=== PATIENT | female | born 1965 | race Caucasian/White ===

== ENCOUNTER 2024-10-21 18:20 | Emergency (ER) | payer SELFPAY ==
[2024-10-21] VITALS (11 sets, daily range): BP systolic 122–146; BP diastolic 82–92; PULSE 62–75; RESP 15–18; TEMP 36.7; O2SAT 96–99
[2024-10-21] MEDS: predniSONE 20 MG TAB 60 MG PO (18:59)
[2024-10-21] MEDS: Famotidine 20 MG TAB PO (18:59)
--- NOTE | 2024-10-21 19:10 | W.ED.GENAD ---
Discharge Plan Disposition Patient Disposition: Home Condition: Good Discharge Details Clinical Impression: Allergic reaction to bee sting Primary Care Provider: Rosemary,Local ED Provider: Nicole Rich Home Meds and New Rx's Prescriptions: New prednisone 20 mg tablet 40 mg PO DAILY 3 Days Qty: 6 0RF prednisone 20 mg tablet 40 mg PO DAILY 3 Days Qty: 6 0RF Discharge Instructions Instructions: Insect Bites and Stings ED Additional Instructions: Please call your primary care provider first thing Wednesday morning to schedule follow-up appointment to discuss today's reaction to bee stings. You are being prescribed a limited course of prednisone to help take down the swelling/inflammatory response. I recommend that you also take cetirizine 10 mg daily to help with itching. Cool compresses such as ice packs may also be helpful to help take down the swelling/itching. Avoid bathing/washing hands in hot water, as that can increase itchiness. I encourage you to avoid scratching, as that can lead to infection. Return to emergency care if you develop new facial/oral swelling, difficulty breathing/swallowing, new vomiting, worsening of rash despite treatment, episodes of passing out, or signs of infection to your bee stings such as increasing redness/swelling/pain/pus drainage, or if you are very worried and need to be rechecked immediately Discharge Data Discharge Date/Time-TO BE ENTERED AT DEPARTURE: 10/21/24 21:11 HPI General Date/Time Provider Initiated Documentation: 10/21/24 18:26. HPI Narrative: Anabel is a 59-year-old female who presents to the emergency department today for evaluation of allergic reaction after multiple bee stings. Reports she stepped on a bee nest while she was walking around 1700 hrs., sustained bee stings to her bilateral arms. She soon after developed swelling around right eye/right side of face, as well as ears. A red, swollen rash in her armpits, bra line, groin, and back also developed. This was accompanied by intense itching/burning sensation and ear pressure. She took 2 Benadryl tablets with good improvement of symptoms. Denies associated difficulty breathing, difficulty swallowing, nausea/vomiting, chest pain, shortness of breath, facial swelling/tongue swelling. No previous episodes of similar reactions. Denies significant past medical history, history of diabetes or bipolar/manias. She is visiting from [place]. Related Data Home Medications ?Medication ?Instructions ?Recorded ?Confirmed prednisone 20 mg tablet 40 mg (2 x 20 mg) PO DAILY 3 days 10/21/24 #6 tabs prednisone 20 mg tablet 40 mg (2 x 20 mg) PO DAILY 3 days 10/21/24 #6 tabs Previous Rx's ?Medication ?Instructions ?Recorded prednisone 20 mg tablet 40 mg (2 x 20 mg) PO DAILY 3 days 10/21/24 #6 tabs prednisone 20 mg tablet 40 mg (2 x 20 mg) PO DAILY 3 days 10/21/24 #6 tabs Allergies Allergy/AdvReac Type Severity Reaction Status Date / Time No Known Allergies Allergy Unverified 10/21/24 18:30 General Stated Complaint: InsectBite ADRIEL: 3 Exam Narrative Exam Narrative: General Appearance: Normal. Vital signs: Within normal limits. HEENT: No oral swelling lip swelling/swelling under tongue. Moist mucous membranes. Clear voice. Able to handle secretions without difficulty. Mild swelling to right lower eyelid. Respiratory: Easy work of breathing, able to speak in full sentences. Skin: Hives noted to bilateral groin folds, bilateral axilla, scattered across abdomen. Psychiatric: Normal. Course Vital Signs Vital signs: Vital Signs Temperature 36.7 C 10/21/24 18:25 Pulse 75 10/21/24 18:25 Respiratory Rate 16 10/21/24 18:25 Blood Pressure 122/82 10/21/24 18:25 Pulse Oximetry 96 10/21/24 18:25 Temperature 36.7 C 10/21/24 18:25 Pulse 75 10/21/24 18:25 Respiratory Rate 16 10/21/24 18:25 Blood Pressure 122/82 10/21/24 18:25 Blood Pressure Position Sitting 10/21/24 18:25 Pulse Oximetry 96 10/21/24 18:25 Oxygen Delivery Method Room Air 10/21/24 18:25 Oxygen Flow Rate 0 10/21/24 18:25 Pain Level 0 10/21/24 18:25 Medical Decision Making Initial Assessment: Systemic reaction to bee stings affecting integumentary system. Normal vital signs, no cardiovascular, respiratory, or GI symptoms. Patient overall very well-appearing. Symptoms significantly improved after Benadryl. History and presentation consistent with generalized urticarial reaction to bee stings. Presentation not consistent with acute anaphylaxis ED Course: - Ice packs applied. - P.o. famotidine and steroids administered. - Observed for recurrence or worsening x 2 hours Final Assessment: Patient experienced full improvement of hives with ice packs and p.o. medications. She was observed for 2 hours, no recurrence of symptoms. She is overall very well-appearing. Clinical Impression: - Urticarial reaction to bee stings Disposition: - Discharge home. Will send home with 3 days of prednisone. Reviewed discharge instructions with patient, including symptomatic management (cetirizine, cool packs), importance of follow-up with PCP, and red flags indicate need for return to emergency care or those concerning for secondary bacterial infection. Patient voices agreement with plan of care. Return if symptoms worsen or new symptoms develop. - Advised against scratching. Apply ice packs for relief. Keep an eye out for signs of secondary bacterial infection Patient consented to the use of DAVINA PFSH All Active Problems (Updated 10/21/24 @ 19:38 by Nicole Butler) Allergic reaction to bee sting (Acute) Social History Smoking/Tobacco Use Status: Never Smoking risk assessment performed?: Yes Alcohol Intake: current Alcohol Intake frequency: a few times a week Substance use type: does not use Housing: house Do you feel safe at home: Yes Do you feel safe in your relationship?: Yes
== END 2024-10-21 21:11 | disposition home or self-care (01) ==
PROVIDERS: Emergency Provider Nurse Practitioner Family
DX: T63.441A Toxic effect of venom of bees, accidental (unintentional), initial encounter (principal); W57.XXXA Bitten or stung by nonvenomous insect and other nonvenomous arthropods, initial encounter; R22.0 Localized swelling, mass and lump, head; R21 Rash and other nonspecific skin eruption
CPT/HCPCS: 99283 ×2; J7512